=== PATIENT | male | born 1955 | race Hispanic/Latino ===

== ENCOUNTER 2016-09-14 10:30 | Outpatient (CLI) | payer MEDICARE | END 2016-09-14 10:31 | LOC: HPCALD 10:30 | PROVIDERS: ATTEND Family Medicine | DX: E03.9 Hypothyroidism, unspecified (principal) | CPT/HCPCS: 36415; 84443 ==

== ENCOUNTER 2017-02-23 08:37 | Outpatient (CLI) | payer MEDICARE | END 2017-02-23 08:38 | disposition home or self-care (01) | LOC: BURLAB 08:37 | PROVIDERS: ATTEND Radiology Radiation Oncology | DX: C61 Malignant neoplasm of prostate (principal) | CPT/HCPCS: 36415; 84153 ==

== ENCOUNTER 2018-04-23 11:34 | Outpatient (CLI) | payer MEDICARE ==
[2018-04-23 17:51] LABS: ALT (SGPT) 36 U/L (8-55); AST (SGOT) 26 U/L (5-34); Albumin 4.6 g/dL (3.4-4.8); Alkaline Phosphatase 97 U/L (40-150); Bilirubin, Direct 0.6 mg/dL (0.1-0.3); Bilirubin, Total 1.2 mg/dL (0.2-1.2); Lipase 6 U/L (8-78); Protein, Total 7.9 g/dL (5.8-8.1)
--- NOTE | 2018-04-23 21:25 | RAD ---
ACUTE ABDOMEN SERIES: 04/23/18 Supine and erect films show no free air beneath the diaphragm. There are multiple short air fluid lev els and some dilation of small bowel. There is abundant fecal material in the colon. There is mild ga seous distention of the colon, but it does not appear obstructed. My main concern is the small bowel. This could represent a partial small bowel obstruction or an ileus. Surgical clips are noted in the pelvis. A chest film in the series is compared with 02/23/17 study. There is some linear streaking that appear s to be scarring. The lungs are otherwise clear. The heart is normal in size. There is no vascular co ngestion or edema. IMPRESSION: Mild prominence of small bowel with air fluid levels, but abundant gas beyond that point. The differe ntial lies between a partial small bowel obstruction and an ileus. Serial followup studies are probab ly needed depending upon the patient's clinical presentation. POS: HOME
== END 2018-04-23 11:35 | disposition home or self-care (01) ==
LOC: BURRAD 11:34
PROVIDERS: ATTEND Family Medicine
DX: R10.13 Epigastric pain (principal)
CPT/HCPCS: 36415; 74022; 80076; 83690

== ENCOUNTER 2018-04-24 10:32 | Outpatient (CLI) | payer MEDICARE ==
--- NOTE | 2018-04-24 22:06 | RAD ---
ACUTE ABDOMEN SERIES 04/24/18 Comparison is made with the 04/23 study. On today's exam, there are air fluid levels in the colon, though it is not terribly distended. Gas is present in small bowel but it is not tremendously dilated, nor do there seem to be many fluid levels here. After obtaining further history, I learn that the patient had a bowel cleansing overnight and originally came in complaining of constipation. There is definitely less fecal material in the colon now. The multiple air fluid levels seen in the colon today are likely due to the cleansing. I feel th e odds that this is due to obstruction are low. Additionally, I learn that the patient symptomaticall y has improved. Clips are noted in the deep pelvis from a prior operative procedure. No calcifications of concern are present. The chest film in the series shows the heart size to be stable. A little streaking near the cardiac apex is likely scarring. The upper lobes are clear. IMPRESSION: Decreased fecal material since yesterday. Colonic air fluid levels most likely due to bowel cleansing . Overall, the pattern is nonspecific. Given symptomatic improvement of the patient, followup studies should be done if he is not improving, but probably do not need to be done if he continues his impro vement. POS: HOME
== END 2018-04-24 10:33 | disposition home or self-care (01) ==
LOC: BURRAD 10:32
PROVIDERS: ATTEND Family Medicine
DX: K56.609 Unspecified intestinal obstruction, unspecified as to partial versus complete obstruction (principal); R19.5 Other fecal abnormalities
CPT/HCPCS: 74022